=== PATIENT | female | born 1950 ===

== ENCOUNTER 2020-04-09 14:53 | Outpatient (CLI) | payer OTHER ==
[~2020-04-09 14:53] MED LIST: ASA81 MG; ATENOLOL25 MG; METFORMIN HCL850 MG; ZANTAC300 MG PO; ZOCOR20 MG; ZOVIRAX15 GM TP; ZOVIRAX800 MG PO
== END 2020-04-09 15:55 | disposition home or self-care (01) ==
LOC: PPH VACUNA 14:53
PROVIDERS: ATTEND Emergency Medicine Pediatric Emergency Medicine
DX: Z23 Encounter for immunization (principal)

== ENCOUNTER → 2020-04-30 07:00 | Outpatient (CLI) | payer OTHER | END | disposition home or self-care (01) | LOC: PPH VACUNA 07:00 | PROVIDERS: ATTEND Emergency Medicine Pediatric Emergency Medicine | DX: Z23 Encounter for immunization (principal) ==